=== PATIENT | male | born 1960 | race Caucasian/White ===

== ENCOUNTER 2018-03-16 06:47 | Day surgery (SDC) | payer BC, OTHER ==
[~2018-03-16 06:47] MED LIST: Lactated Ringers 1,000 ML IV SCH
[2018-03-16] MEDS ORDERED: Propofol 200 MG/20 ML SDV IV ONE (06:48)
[2018-03-16] MEDS ORDERED: Lidocaine 1% 30 ML SDV INJECT ONE (06:48)
--- NOTE | 2018-03-16 08:18 | PCM.OPNOTE ---
- General Post-Op/Procedure Note Date of Surgery/Procedure: 03/16/18 Operative Procedure(s): c scope with bx Findings: normal exam Pre Op Diagnosis: hx of ulcerative colitis Post-Op Diagnosis: Same Anesthesia Technique: Moderate Sedation Primary Surgeon: Manjit Garcia Anesthesia Provider: Sergio Sy Pathology: bx taken every 10 cm Complications: None Condition: Good Free Text/Narrative:: see dictation
--- NOTE | 2018-03-16 09:43 | OR ---
DATE OF OPERATION: 03/16/2018 SURGEON: Manjit Garcia MD PROCEDURE PERFORMED: Colonoscopy with biopsies. PREOPERATIVE DIAGNOSIS: Ulcerative colitis. POSTOPERATIVE DIAGNOSIS: Grossly normal colon. INDICATIONS FOR PROCEDURE: Mr. Gomez is a 57-year-old white male, who has a history of ulcerative colitis. His disease has been under excellent control. He presents now for five year surveillance. DESCRIPTION OF OPERATION: After an excellent IV sedation was administered, digital rectal exam was performed. No marked abnormality was noted. The flexible colonoscope was inserted and advanced without difficulty to the cecum. The prep was excellent. The following findings were noted. Ascending colon normal. Biopsies taken every 10 cm and submitted in one container. Transverse colon normal. Biopsies taken every 10 cm and submitted in one container. Descending colon, unremarkable. Biopsies were taken every 10 cm and submitted in one container. Sigmoid unremarkable. Biopsies taken every 10 cm and submitted in one container. Rectum unremarkable. Biopsies performed every 10 cm and submitted in one container. The colon was deflated as the scope was removed. The patient tolerated the procedure well, was taken to recovery in good condition. /[id number] /MODL
== END 2018-03-16 08:51 | disposition home or self-care (01) ==
LOC: FB.SDS 06:47
PROVIDERS: ATTEND Surgery
DX: Z12.11 Encounter for screening for malignant neoplasm of colon (principal); I10 Essential (primary) hypertension; N40.1 Benign prostatic hyperplasia with lower urinary tract symptoms; R35.1 Nocturia; R35.0 Frequency of micturition; Z87.19 Personal history of other diseases of the digestive system; Z79.899 Other long term (current) drug therapy; Z88.1 Allergy status to other antibiotic agents
CPT/HCPCS: 45380; 88305; J2704; J7120

== ENCOUNTER 2018-08-05 14:03 | Emergency (ER) | payer OTHER ==
[2018-08-05] MEDS ORDERED: Sodium Chloride 0.9% 10 ML Syringe FLUSH PRN (14:24)
[2018-08-05] MEDS ORDERED: Sodium Chloride 0.9% 1,000 ML IV SCH (14:30)
--- NOTE | 2018-08-05 14:34 | EDM.PDOC ---
ED HPI GENERAL MEDICAL PROBLEM - General Chief Complaint: Cardiovascular Problem Stated Complaint: HEART PALP LIGHT HEADED Time Seen by Provider: 08/05/18 14:30 Source of Information: Reports: Patient History Limitations: Reports: No Limitations - History of Present Illness INITIAL COMMENTS - FREE TEXT/NARRATIVE: Patient developed palpitations (skipped beats), lightheadedness and left sided chest discomfort @13:15 while at work. Palpitations have resolved, dizziness persist, chest pain has improved. Denies h/o CAD or arrhythmia. There is a family history of heart disease (mid 50yo). Onset Date: 08/05/18 Onset Time: 01:15 Duration: Hour(s): (1) Location: Reports: Chest Associated Symptoms: Reports: Chest Pain, Other (Dizziness). Denies: Cough, Nausea/Vomiting, Shortness of Breath Left upper chest Pain Score (Numeric/FACES): 2 - Related Data Allergies Allergy/AdvReac Type Severity Reaction Status Date / Time amoxicillin [From Augmentin] Allergy Cannot Verified 08/05/18 14:48 Remember aspirin Allergy Swelling Verified 08/05/18 14:48 clavulanic acid Allergy Cannot Verified 08/05/18 14:48 [From Augmentin] Remember morphine Allergy Hives Verified 08/05/18 14:48 Home Meds: Home Meds Albuterol Sulfate [Proair Respiclick] 2 puff IH ASDIRECTED 03/13/18 [History] Cetirizine [ZyrTEC] 10 mg PO DAILY 03/13/18 [History] Mesalamine 1.2 - 4.8 mg PO DAILY 03/13/18 [History] Multivitamin [Multiple Vitamins] 1 ea PO DAILY 03/13/18 [History] Terazosin [Hytrin] 5 mg PO BEDTIME 03/13/18 [History] Past Medical History HEENT History: Reports: Impaired Vision Cardiovascular History: Reports: High Cholesterol, Hypertension. Denies: CAD, [place] Gastrointestinal History: Reports: Other (See Below) Other Gastrointestinal History: ULCERATIVE COLITIS Genitourinary History: Reports: Prostate Disorder - Past Surgical History HEENT Surgical History: Reports: Eye Surgery GI Surgical History: Reports: Colonoscopy, EGD Social & Family History - Tobacco Use Smoking Status *Q: Never Smoker - Caffeine Use Caffeine Use: Reports: Coffee ED ROS GENERAL - Review of Systems Review Of Systems: ROS reveals no pertinent complaints other than HPI. ED EXAM, GENERAL - Physical Exam Exam: See Below Exam Limited By: No Limitations General Appearance: Alert, WD/WN, No Apparent Distress Ears: Normal External Exam Nose: Normal Inspection Throat/Mouth: No Airway Compromise Head: Atraumatic, Normocephalic Neck: Full Range of Motion Respiratory/Chest: No Respiratory Distress, Lungs Clear, Normal Breath Sounds Cardiovascular: Regular Rate, Rhythm, No Edema, No Murmur, Other (mild left chest wall tenderness) GI/Abdominal: No Distention Extremities: Normal Inspection, No Pedal Edema Neurological: Alert, Normal Cognition, No Motor/Sensory Deficits Psychiatric: Normal Affect, Normal Mood Skin Exam: Warm, Dry, Intact EKG INTERPRETATION EKG Date: 08/05/18 Time: 14:14 Rhythm: NSR Rate (Beats/Min): 85 Harbinger: Normal P-Wave: Present QRS: Normal ST-T: Other (borderline t wave inversion inferior leads, no ST abnormalities) Comparison: NA - No Prior EKG EKG Interpretation Comments: 2nd EKG @17:52 showed no changes. Course - Vital Signs Last Recorded V/S: Last Vital Signs Temp 36.4 C 08/05/18 14:08 Pulse 93 08/05/18 14:08 Resp 17 08/05/18 14:08 BP 159/87 H 08/05/18 14:08 Pulse Ox 97 08/05/18 14:08 - Orders/Labs/Meds Orders: Active Orders 24 hr Category Date Time Status EKG Documentation Completion [RC] ASDIRECTED Care 08/05/18 14:11 Active EKG Documentation Completion [RC] ASDIRECTED Care 08/05/18 17:33 Active CXR [Chest 1V Frontal] [CR] Stat Exams 08/05/18 14:23 Taken Sodium Chloride 0.9% [Normal Saline] 1,000 ml Med 08/05/18 14:30 Active IV ASDIRECTED Sodium Chloride 0.9% [Saline Flush] Med 08/05/18 14:24 Active 10 ml FLUSH ASDIRECTED PRN Saline Lock Insert [OM.PC] Routine Oth 08/05/18 14:24 Ordered EKG 12 Lead [EK] Stat Ther 08/05/18 14:10 Ordered EKG 12 Lead [EK] Stat Ther 08/05/18 17:33 Ordered Medication Orders Sodium Chloride (Normal Saline) 1,000 mls @ 999 mls/hr IV ASDIRECTED NAVDEEP Last Admin: 08/05/18 14:30 Dose: 200 mls/hr Sodium Chloride (Saline Flush) 10 ml FLUSH ASDIRECTED PRN PRN Reason: Keep Vein Open Last Admin: 08/05/18 14:28 Dose: 10 ml Labs: Laboratory Tests 08/05/18 08/05/18 08/05/18 Range/Units 14:34 14:40 14:40 WBC 6.2 (4.5-12.0) X10-3/uL RBC 5.02 (4.30-5.75) x10(6)uL Hgb 15.4 (13.5-17.8) g/dL Hct 44.6 (30.0-51.3) % MCV 88.8 (80-96) fL MCH 30.7 (27.7-33.6) pg MCHC 34.5 (32.2-35.4) g/dL RDW 12.7 (11.5-15.5) % Plt Count 150 (125-369) X10(3)uL MPV 10.6 H (7.4-10.4) fL Neut % (Auto) 71.2 (46-82) % Lymph % (Auto) 17.7 (13-37) % Sunflower % (Auto) 8.2 (4-12) % Eos % (Auto) 2 (1.0-5.0) % Baso % (Auto) 1 (0-2) % Neut # (Auto) 4.5 (1.6-8.3) # Lymph # (Auto) 1.1 (0.6-5.0) # Sunflower # (Auto) 0.5 (0.0-1.3) # Eos # (Auto) 0.1 (0.0-0.8) # Baso # (Auto) 0.0 (0.0-0.2) # PT 10.7 (8.7-11.1) INR 1.10 (0.89-1.13) APTT 25.9 (24.4-33.2) SECONDS D-Dimer, Quantitative < 0.19 (0.0-0.59) mg/LFEU Sodium (135-145) mmol/L Potassium (3.5-5.3) mmol/L Chloride (100-110) mmol/L Carbon Dioxide (21-32) mmol/L BUN (7-18) mg/dL Creatinine (0.70-1.30) mg/dL Est Cr Clr Drug Dosing mL/min Estimated GFR (MDRD) (>60) BUN/Creatinine Ratio (9-20) Glucose (80-116) mg/dL Calcium (8.6-10.2) mg/dL Total Bilirubin (0.1-1.3) mg/dL AST (5-25) IU/L ALT (12-36) U/L Alkaline Phosphatase (56-112) IU/L Troponin I (<0.017-0.056) ng/mL Total Protein (6.0-8.0) g/dL Albumin (3.5-5.2) g/dL Globulin g/dL Albumin/Globulin Ratio Urine Opiates Screen Negative (NEGATIVE) Ur Oxycodone Screen Negative (NEGATIVE) Ur Propoxyphene Screen Negative (NEGATIVE) Ur Barbituates Screen Negative (NEGATIVE) Ur Tricyclics Screen Negative (NEGATIVE) Ur Phencyclidine Scrn Negative (NEGATIVE) Ur Amphetamine Screen Negative (NEGATIVE) Urine MDMA Screen Negative (NEGATIVE) U Benzodiazepines Scrn Negative (NEGATIVE) U Cocaine Metab Screen Negative (NEGATIVE) U Marijuana (THC) Screen Negative (NEGATIVE) 08/05/18 08/05/18 08/05/18 Range/Units 14:40 14:40 17:41 WBC (4.5-12.0) X10-3/uL RBC (4.30-5.75) x10(6)uL Hgb (13.5-17.8) g/dL Hct (30.0-51.3) % MCV (80-96) fL MCH (27.7-33.6) pg MCHC (32.2-35.4) g/dL RDW (11.5-15.5) % Plt Count (125-369) X10(3)uL MPV (7.4-10.4) fL Neut % (Auto) (46-82) % Lymph % (Auto) (13-37) % Sunflower % (Auto) (4-12) % Eos % (Auto) (1.0-5.0) % Baso % (Auto) (0-2) % Neut # (Auto) (1.6-8.3) # Lymph # (Auto) (0.6-5.0) # Sunflower # (Auto) (0.0-1.3) # Eos # (Auto) (0.0-0.8) # Baso # (Auto) (0.0-0.2) # PT (8.7-11.1) INR (0.89-1.13) APTT (24.4-33.2) SECONDS D-Dimer, Quantitative (0.0-0.59) mg/LFEU Sodium 144 (135-145) mmol/L Potassium 3.9 (3.5-5.3) mmol/L Chloride 106 (100-110) mmol/L Carbon Dioxide 26 (21-32) mmol/L BUN 24 H (7-18) mg/dL Creatinine 1.1 (0.70-1.30) mg/dL Est Cr Clr Drug Dosing 74.98 mL/min Estimated GFR (MDRD) > 60 (>60) BUN/Creatinine Ratio 21.8 H (9-20) Glucose 101 (80-116) mg/dL Calcium 9.1 (8.6-10.2) mg/dL Total Bilirubin 0.5 (0.1-1.3) mg/dL AST 20 (5-25) IU/L ALT 45 H (12-36) U/L Alkaline Phosphatase 80 (56-112) IU/L Troponin I < 0.017 L < 0.017 L (<0.017-0.056) ng/mL Total Protein 7.2 (6.0-8.0) g/dL Albumin 4.1 (3.5-5.2) g/dL Globulin 3.1 g/dL Albumin/Globulin Ratio 1.3 Urine Opiates Screen (NEGATIVE) Ur Oxycodone Screen (NEGATIVE) Ur Propoxyphene Screen (NEGATIVE) Ur Barbituates Screen (NEGATIVE) Ur Tricyclics Screen (NEGATIVE) Ur Phencyclidine Scrn (NEGATIVE) Ur Amphetamine Screen (NEGATIVE) Urine MDMA Screen (NEGATIVE) U Benzodiazepines Scrn (NEGATIVE) U Cocaine Metab Screen (NEGATIVE) U Marijuana (THC) Screen (NEGATIVE) Meds: Medications Generic Name Dose Route Start Last Admin Trade Name Freq PRN Reason Stop Dose Admin Sodium Chloride 1,000 mls @ 999 mls/hr 08/05/18 14:30 08/05/18 14:30 Normal Saline IV 200 mls/hr ASDIRECTED NAVDEEP Administration Sodium Chloride 10 ml 08/05/18 14:24 08/05/18 14:28 Saline Flush FLUSH 10 ml ASDIRECTED PRN Administration Keep Vein Open - Radiology Interpretation Free Text/Narrative:: CXR: Unremarkable (ED provider interpretation). - Re-Assessments/Exams Free Text/Narrative Re-Assessment/Exam: 08/05/18 18:18 Chest pain resolved. Remained in NSR w/o ectopy during the ED stay. Dizziness significantly improved. Troponins negative x 2, three hours apart. Departure - Departure Time of Disposition: 18:19 Disposition: Home, Self-Care 01 Condition: Good Clinical Impression: Palpitations with regular cardiac rhythm, Atypical chest pain, Lightheadedness Instructions: Nonspecific Chest Pain, Dizziness, [id number], Palpitations Referrals: Jay Avelar MD [Primary Care Provider] - 2 Days Forms: ED Department Discharge, ED Return to Work/School Form Additional Instructions: Rest, push fluids. Follow up with your primary physician in 2 days. Off work until next week. Return to the ER if symptoms recur or worsen. - My Orders Last 24 Hours: My Active Orders 08/05/18 14:10 EKG 12 Lead [EK] Stat 08/05/18 14:11 EKG Documentation Completion [RC] ASDIRECTED 08/05/18 14:23 CXR [Chest 1V Frontal] [CR] Stat 08/05/18 14:24 Sodium Chloride 0.9% [Saline Flush] 10 ml FLUSH ASDIRECTED PRN Saline Lock Insert [OM.PC] Routine 08/05/18 14:30 Sodium Chloride 0.9% [Normal Saline] 1,000 ml IV ASDIRECTED 08/05/18 17:33 EKG Documentation Completion [RC] ASDIRECTED EKG 12 Lead [EK] Stat - Assessment/Plan Last 24 Hours: My Active Orders 08/05/18 14:10 EKG 12 Lead [EK] Stat 08/05/18 14:11 EKG Documentation Completion [RC] ASDIRECTED 08/05/18 14:23 CXR [Chest 1V Frontal] [CR] Stat 08/05/18 14:24 Sodium Chloride 0.9% [Saline Flush] 10 ml FLUSH ASDIRECTED PRN Saline Lock Insert [OM.PC] Routine 08/05/18 14:30 Sodium Chloride 0.9% [Normal Saline] 1,000 ml IV ASDIRECTED 08/05/18 17:33 EKG Documentation Completion [RC] ASDIRECTED EKG 12 Lead [EK] Stat
--- NOTE | 2018-08-06 08:17 | CR ---
INDICATION: Chest pain. CHEST ONE VIEW: AP upright portable view of the chest 08/05/18--no comparisons. The heart did not appear enlarged. Overlying EKG leads are noted. An active infiltrate or effusion was not identified. IMPRESSION: No acute process. MTDD
== END 2018-08-05 19:01 | disposition home or self-care (01) ==
LOC: FB.ED 14:03
DX: R07.89 Other chest pain (principal); R00.2 Palpitations; R42 Dizziness and giddiness; I10 Essential (primary) hypertension; E78.00 Pure hypercholesterolemia, unspecified; Z79.899 Other long term (current) drug therapy; Z88.1 Allergy status to other antibiotic agents; Z88.6 Allergy status to analgesic agent; Z88.5 Allergy status to narcotic agent
CPT/HCPCS: 36415; 71045; 80053; 80305-QW; 84484; 85025; 85379; 85610; 85730; 93005; 96360; 99284-25; J7030

== ENCOUNTER 2023-11-14 06:09 | Day surgery (SDC) | payer BC, OTHER ==
[2023-11-14] MEDS ORDERED: Albuterol 6.7 GM Inhaler INH ONE (06:10)
[2023-11-14] MEDS ORDERED: diphenhydrAMINE 50 MG/ML SDV IVPUSH ONE (06:10)
[2023-11-14] MEDS ORDERED: Lidocaine 2% 100 MG/5 ML Syringe IVPUSH ONE (06:10)
[2023-11-14] MEDS ORDERED: Propofol 200 MG/20 ML SDV IV ONE (06:10)
[2023-11-14] MEDS ORDERED: Sodium Chloride 0.9% 10 ML Syringe FLUSH PRN (06:15)
[2023-11-14] MEDS: Lactated Ringers 1,000 ML IV SCH (07:25)
[2023-11-14] MEDS: Simethicone Drops 40 MG/0.6 ML 30 ML Bottle ONE (07:42)
== END 2023-11-14 09:15 | disposition home or self-care (01) ==
LOC: FB.SDS 06:09
PROVIDERS: ATTEND Surgery
DX: K57.31 Diverticulosis of large intestine without perforation or abscess with bleeding (principal); K40.90 Unilateral inguinal hernia, without obstruction or gangrene, not specified as recurrent; K51.90 Ulcerative colitis, unspecified, without complications; Z87.891 Personal history of nicotine dependence; Z79.899 Other long term (current) drug therapy
CPT/HCPCS: 88305; A9270-GY; J1200; J2704; J7120